=== PATIENT | female | born 1975 | race Caucasian/White ===

== ENCOUNTER 2017-12-28 22:36 | Emergency (ER) | payer SELFPAY ==
[~2017-12-28] VITALS: Ht 162.6 cm; Wt 99.3 kg
--- NOTE | 2017-12-28 22:53 | NUR ---
PT IN BED. PT A&OX4. PT DECIDES THAT SHE WANT TO REFUSES ALL SERVICES AND LEAVE BEFORE SEEING MD. MD MADE AWARE.
== END 2017-12-28 22:55 | disposition left against medical advice (07) ==
LOC: ER 22:37
DX: Z53.21 Procedure and treatment not carried out due to patient leaving prior to being seen by health care provider (principal)
CPT/HCPCS: 93005; A4663